=== PATIENT | female | born 1965 | race Caucasian/White ===

== ENCOUNTER 2024-04-16 07:21 | Day surgery (SDC) | payer BC ==
[2024-04-15 09:32] VITALS: BMI 19.5
[~2024-04-16 07:21] MED LIST: LACTATED RINGERS 1,000 ML IV SCH
[2024-04-16] MEDS: IV FLUID CONTINUATION 1,000 ML IV ONE (07:45)
[2024-04-16 07:47] VITALS: TEMP 97.2
[2024-04-16] MEDS: LACTATED RINGERS 1,000 ML BAG IV STA (07:57)
[2024-04-16] MEDS ORDERED: PROPOFOL 10 MG/ML 20 ML VIAL IV ONE (08:15)
--- NOTE | 2024-04-16 08:37 | P.GSHP ---
History of Present Illness H&P Date: 04/16/24 Chief Complaint: Screening colonoscopy Is a 58-year-old female presents today for screening colonoscopy. Patient denies any significant GI complaints. Past Medical History Past Medical History: Cancer, GERD/Reflux, Thyroid Disorder Additional Past Medical History / Comment(s): SKIN CANCERS History of Any Multi-Drug Resistant Organisms: None Reported Additional Past Surgical History / Comment(s): SKIN CANCER REMOVAL. AB. Past Anesthesia/Blood Transfusion Reactions: No Reported Reaction Smoking Status: Former smoker - Past Family History Father Family Medical History: Cancer Medications and Allergies Home Medications Medication Instructions Recorded Confirmed Type Fluticasone Propionate [Children's 1 spray NASAL DAILY PRN 02/05/24 04/16/24 History Flonase Allergy Rlf] Ibuprofen [Advil] 200 - 400 mg PO Q6H PRN 02/05/24 04/16/24 History Levothyroxine Sodium [Synthroid] 50 mcg PO QAM 02/05/24 04/16/24 History Allergies Allergy/AdvReac Type Severity Reaction Status Date / Time Penicillins Allergy Unknown Verified 04/16/24 07:43 Childhood tetracycline Allergy Unknown Verified 04/16/24 07:43 Childhood Surgical - Exam Vital Signs Temp Pulse Resp BP Pulse Ox 97.2 F L 75 18 130/57 98 04/16/24 07:41 04/16/24 07:41 04/16/24 07:41 04/16/24 07:41 04/16/24 07:41 - General well developed, well nourished, no distress - Eyes PERRL - ENT normal pinna - Neck no masses - Respiratory normal expansion - Cardiovascular Rhythm: regular - Abdomen Abdomen: soft, non tender Assessment and Plan Assessment: Will perform screening colonoscopy.
--- NOTE | 2024-04-16 08:38 | P.OP ---
Date of Procedure: 04/16/24 Preoperative Diagnosis: Screening colonoscopy Postoperative Diagnosis: Hemorrhoids Procedure(s) Performed: Colonoscopy Anesthesia: MAC Surgeon: Ej Hoskins Pathology: none sent Condition: stable Disposition: PACU Description of Procedure: The patient was placed on the endoscopy table in the lateral position. She received IV sedation. The digital rectal exams performed which revealed external hemorrhoids. Flexible colonoscope was then placed patient anus passed throughout the entire colon. The ileocecal valve was visualized. The cecum, ascending and transverse colon appeared normal. The descending and sigmoid colon appeared normal. Scope was then brought back to the rectum was normal. S cope withdrawn for the patient.
[2024-04-16 08:42] VITALS: RESP 16
[2024-04-16 08:55] VITALS: BP 106/59; PULSE 72
== END 2024-04-16 09:19 | disposition home or self-care (01) ==
LOC: ORWHC2ENDO 07:21
PROVIDERS: ATTEND Surgery
DX: Z12.11 Encounter for screening for malignant neoplasm of colon (principal); K64.4 Residual hemorrhoidal skin tags; K21.9 Gastro-esophageal reflux disease without esophagitis; E07.9 Disorder of thyroid, unspecified; Z85.828 Personal history of other malignant neoplasm of skin; Z79.899 Other long term (current) drug therapy; Z79.890 Hormone replacement therapy; Z87.891 Personal history of nicotine dependence; Z88.0 Allergy status to penicillin; Z88.1 Allergy status to other antibiotic agents
CPT/HCPCS: 45378; J2704